=== PATIENT | female | born 1990 | race Caucasian/White ===

== ENCOUNTER 2020-09-20 05:21 | Inpatient (IN) ==
[2020-09-20] MEDS ORDERED: ONDANSETRON 4 MG/2 ML VIAL IV PRN ×3 (05:29→12:15)
[2020-09-20] MEDS ORDERED: MEPERIDINE 50 MG/1 ML VIAL IV PRN (05:29)
[2020-09-20] MEDS ORDERED: BUTORPHANOL 2 MG/ML VIAL IV PRN (05:29)
[2020-09-20] MEDS ORDERED: LACTATED RINGERS 1,000 ML IV SCH (05:30)
[2020-09-20] MEDS ORDERED: OXYTOCIN/LR 20 UNIT/1,000 ML BAG IV ONE ×3 (06:06→12:15)
[2020-09-20 06:10] LABS: Basophils % 0.5 % (0.0-0.8); Eosinophils # 0.1 10*3/uL (0.0-0.87); Eosinophils % 1.6 % (0.00-10.9); Hematocrit 33.1 VOL% (35.7-47.0); Hemoglobin 11.5 GM/DL (12.0-16.0); Immature Granulocytes Absolute 0.09 #; Lymphocytes # 1.9 10*3/uL (1.4-4.0); Mean Corpuscular HGB Conc 34.7 GM/DL (32-36); Mean Corpuscular Volume 91.7 FL (87-102); Mean Platelet Volume 9.7 FL (9.6-12.0); Monocytes % 8.1 % (1.7-12.7); Neutrophils % 66.8 % (38.7-73.9); Platelet Count 292 T/CUMM (130-400); Red Blood Count 3.61 MC/CUMM (3.8-5.5); Red Cell Distribution Width 13.1 % (9.3-17.3); White Blood Count 8.7 T/CUMM (4-12)
[2020-09-20 06:21] LABS: Alanine Aminotransferase 17 U/L (13-56); Albumin 2.8 G/DL (3.4-5.0); Alkaline Phosphatase 167 U/L (45-117); Aspartate Amino Transferase 16 U/L (0-37); Bilirubin,Total < 0.39 MG/DL (0.2-1.0); Blood Urea Nitrogen 7 MG/DL (7-18); Calcium 8.6 MG/DL (8.5-10.1); Carbon Dioxide 22 MMOL/L (21-32); Estimated Glom Filtration Rate 149 ML/MIN; Glucose 95 MG/DL (74-106); Potassium 3.8 MMOL/L (3.5-5.1); Sodium 136 MMOL/L (136-145); Total Protein 6.3 G/DL (6.4-8.2)
[2020-09-20] MEDS ORDERED: OXYTOCIN/LR 20 UNIT/1,000 ML BAG IV SCH (06:30)
[2020-09-20] MEDS ORDERED: LACTATED RINGERS 250 ML IV PRN (08:43)
[2020-09-20] MEDS ORDERED: hydrOXYzine HCL 25 MG/1 ML VIAL IM PRN (08:43)
[2020-09-20] MEDS ORDERED: ePHEDrine 50 MG/ML VIAL IV PRN (08:43)
[2020-09-20] MEDS ORDERED: NALOXONE 0.4 MG/ML VIAL IV PRN (08:43)
[2020-09-20] MEDS ORDERED: diphenhydrAMINE 50 MG/1 ML VIAL IV PRN ×2 (08:43)
[2020-09-20] MEDS ORDERED: CITRIC ACID/SODIUM CITRATE 30 ML UDCUP PO ONE (08:43)
[2020-09-20] MEDS ORDERED: FAMOTIDINE 20 MG/2 ML VIAL IV ONE (08:43)
[2020-09-20] MEDS ORDERED: LACTATED RINGERS 1,000 ML IV ONE (08:43)
[2020-09-20] MEDS ORDERED: PROMETHAZINE 25 MG/1 ML VIAL IM PRN (08:43)
[2020-09-20] MEDS ORDERED: fentaNYL 2 MCG/ROPIV 0.2% EPID 100 ML EPIDURAL SCH (09:00)
[2020-09-20] MEDS ORDERED: METHYLERGONOVINE 0.2 MG/1 ML AMP ONE (10:12)
[2020-09-20] MEDS ORDERED: miSOPROStoL 200 MCG TABLET ONE (10:12)
[2020-09-20] MEDS ORDERED: TRANEXAMIC ACID 1,000 MG/10 ML VIAL ONE (10:12)
[2020-09-20] MEDS ORDERED: CARBOPROST TROMETHAMINE 250 MCG/ML AMP IM ONE (10:13)
[2020-09-20 12:13] LABS: Cord Venous Blood PCO2 42.2 MMHG; Cord Venous Blood PO2 29.3
[2020-09-20] MEDS ORDERED: oxyCODONE/ACETAMINOPHEN 5-325 MG TABLET PO PRN ×2 (12:15)
[2020-09-20] MEDS ORDERED: ACETAMINOPHEN 325 MG TABLET PO PRN (12:15)
[2020-09-20] MEDS ORDERED: LANOLIN 50% CREAM 0.3 OZ TUBE TOP PRN (12:15)
[2020-09-20] MEDS ORDERED: HYDROCORTISONE 2.5% RECTAL CREAM 30 GM TUBE TOP PRN (12:15)
[2020-09-20] MEDS ORDERED: RHO(D) IMMUNE GLOBULIN 300 MCG SYRINGE IM ONE (12:15)
[2020-09-20] MEDS ORDERED: DIPH/TET/ACEL PERT BOOSTER VACCINE 0.5 ML VIAL IM ONE (12:15)
[2020-09-20] MEDS ORDERED: WITCH HAZEL PADS 100/JAR TOP PRN (12:15)
[2020-09-20] MEDS ORDERED: BISACODYL 10 MG SUPP RECTAL PRN (12:15)
[2020-09-20] MEDS ORDERED: MEASLES/MUMPS/RUBELLA VACCINE 0.5 ML VIAL SUBCUT ONE (12:15)
[2020-09-20] MEDS ORDERED: BENZOCAINE 20%/MENTHOL 0.5% SPRAY 56 GM CAN TOP PRN (12:15)
[2020-09-20] MEDS: IBUPROFEN 800 MG TABLET PO PRN (15:48)
[2020-09-20] MEDS: DOCUSATE SODIUM 100 MG CAPSULE PO SCH (21:36)
[2020-09-21] MEDS: IBUPROFEN 800 MG TABLET PO PRN ×2 (03:10→12:01)
[2020-09-21 06:59] LABS: Basophils # 0.1 10*3/uL (0.0-0.2); Basophils % 0.6 % (0.0-0.8); Eosinophils # 0.3 10*3/uL (0.0-0.87); Eosinophils % 2.2 % (0.00-10.9); Hematocrit 35.5 VOL% (35.7-47.0); Hemoglobin 11.9 GM/DL (12.0-16.0); Immature Granulocytes % 0.9 %; Lymphocytes # 2.5 10*3/uL (1.4-4.0); Lymphocytes % 21.7 % (21.3-54.2); Mean Corpuscular HGB Conc 33.5 GM/DL (32-36); Mean Corpuscular Volume 95.4 FL (87-102); Mean Platelet Volume 9.7 FL (9.6-12.0); Monocytes % 7.3 % (1.7-12.7); Neutrophils % 67.3 % (38.7-73.9); Platelet Count 311 T/CUMM (130-400); Red Blood Count 3.72 MC/CUMM (3.8-5.5); Red Cell Distribution Width 13.2 % (9.3-17.3); White Blood Count 11.3 T/CUMM (4-12)
[2020-09-21] MEDS: MULTIVITAMIN (PRENATAL) TABLET PO SCH (08:34)
[2020-09-21] MEDS: DOCUSATE SODIUM 100 MG CAPSULE PO SCH ×2 (08:34→20:53)
[2020-09-22] MEDS: IBUPROFEN 800 MG TABLET PO PRN (04:07)
[2020-09-22 08:36] VITALS: BP 132/79
[2020-09-22] MEDS: DOCUSATE SODIUM 100 MG CAPSULE PO SCH (09:30)
[2020-09-22] MEDS: MULTIVITAMIN (PRENATAL) TABLET PO SCH (09:30)
== END 2020-09-22 10:50 | disposition home or self-care (01) | DRG 560 ==
LOC: N.LD 05:21 → N.OB 14:19
PROVIDERS: ADMIT Specialist; ATTEND Specialist